=== PATIENT | female | born 1990 | race American Indian/Alaskan Native ===

== ENCOUNTER 2023-07-31 09:05 | Observation (INO) ==
[2023-07-31] MEDS ORDERED: HYDROcodone/ACETAMIN 5/325 mg TAB PO ONE (10:58)
[2023-07-31] MEDS ORDERED: diazePAM INJ CARPUJECT 5 MG/ML SYRINGE ONE (14:39)
[2023-07-31] MEDS ORDERED: diazePAM INJ CARPUJECT 5 MG/ML SYRINGE IV ONE (14:44)
[2023-07-31] MEDS ORDERED: Lactated Ringers 1000 ml BAG 1,000 ML IV ONE (14:46)
[2023-07-31 15:13] LABS: ABS Lymphocytes 3.4 10^3/uL (1.0-4.8); ABS Monocytes 1.3 10^3/uL (0.0-0.9); ABS Neutrophils 7.3 10^3/uL (1.5-7.6); ABS Nucleated RBC 0.01 10^3/ul; Eosinophil % 0.2 %; Hematocrit 40.2 % (35-45); Hemoglobin 13.2 g/dL (11.5-14.3); Lymphocyte % 28.3 %; Mean Corpuscular Hemoglobin 29.7 pg (27-33); Mean Corpuscular Hgb Conc 32.8 g/dL (31-36); Mean Corpuscular Volume 90.3 fL (80-97); Nucleated Red Blood Cells % 0.1 %/100WBC (0.0-0.8); Platelet Count 257 10^3/uL (150-450); Red Blood Count 4.46 10^6/uL (3.63-4.92); Red Cell Distribution Width 14.8 % (12-17)
[2023-07-31 15:38] LABS: Alcohol, S < 13 mg/dL (<13)
[2023-07-31 15:43] LABS: HCG Pregnancy < 0.60 mIU/mL
[2023-07-31 17:51] LABS: ALT 25 U/L (7-52); AST 35 U/L (13-39); Albumin 4.8 g/dL (3.2-5.2); Albumin/Globulin Ratio 1.9 (1-3); Alkaline Phosphatase 38 U/L (35-149); Anion Gap 24 mmol/L (2-16); Blood Urea Nitrogen 8 mg/dL (6-24); Calcium 9.5 mg/dL (8.6-10.3); Chloride 104 mmol/L (101-111); Creatine Kinase 179 U/L (10-223); Globulin 2.5 g/dL (2-4); Glucose 109 mg/dL (70-100); Potassium 3.8 mmol/L (3.5-5.0); Sodium 142 mmol/L (135-145); Total Bilirubin 0.4 mg/dL (0.2-1.0); Total Protein 7.3 g/dL (6.4-8.9); eGFR CKD-EPI 118.5 (>60)
[2023-07-31 17:56] LABS: CO2 Carbon Dioxide 14 mmol/L (22-32)
[2023-07-31] MEDS ORDERED: Lactated Ringers 1000 ml BAG 1,000 ML IV SCH (21:23)
[2023-08-01 05:59] LABS: ABS Eosinophils 0.1 10^3/uL (0.0-0.5); ABS Lymphocytes 1.5 10^3/uL (1.0-4.8); ABS Monocytes 0.5 10^3/uL (0.0-0.9); ABS Neutrophils 2.1 10^3/uL (1.5-7.6); Hematocrit 34.4 % (35-45); Hemoglobin 11.6 g/dL (11.5-14.3); Lymphocyte % 34.8 %; Mean Corpuscular Hemoglobin 30.1 pg (27-33); Mean Corpuscular Hgb Conc 33.8 g/dL (31-36); Mean Corpuscular Volume 88.9 fL (80-97); Mean Platelet Volume 8.7 fL (7.5-11.2); Platelet Count 178 10^3/uL (150-450); Red Blood Count 3.87 10^6/uL (3.63-4.92); Red Cell Distribution Width 14.7 % (12-17); White Blood Count 4.3 10^3/uL (3.8-11.8)
[2023-08-01 07:52] LABS: Calcium 8.4 mg/dL (8.6-10.3); Creatinine, Serum 0.62 mg/dL (0.51-0.95); Potassium 3.2 mmol/L (3.5-5.0)
[2023-08-01 08:05] LABS: Magnesium 1.8 mg/dL (1.9-2.7)
[2023-08-01 14:27] VITALS: BP 126/79
== END 2023-08-01 16:00 | disposition home or self-care (01) ==
LOC: ED 09:05 → EDHOLD 09:05 → MED 18:33
PROVIDERS: ADMIT Student in an Organized Health Care Education/Training Program; ATTEND Student in an Organized Health Care Education/Training Program